=== PATIENT | female | born 2000 | race Caucasian/White ===

== ENCOUNTER 2024-12-08 10:45 | Day surgery (SDC) | payer OTHER ==
[2024-12-05 13:08] VITALS: BMI 19.5
[2024-12-08] MEDS ORDERED: PROMETHAZINE HCL 25 MG/1 ML VIAL IVPB PRN (12:55)
[2024-12-08] MEDS ORDERED: LACTATED RINGERS SOLUTION 1,000 ML IV SCH (13:00)
[2024-12-08] MEDS ORDERED: GUM MASTIC/STORAX/MSAL/ALCOHOL 1 DRP DROPSBTL MC ONE (13:08)
[2024-12-08] MEDS ORDERED: BUPIVACAINE HCL/EPINEPHRINE/PF 30 ML VIAL IJ ONE (13:08)
[2024-12-08] MEDS ORDERED: BACITRACIN ZINC 15 GM TUBE TOPICAL OINTMENT ONE (13:08)
[2024-12-08] MEDS ORDERED: PROPOFOL 80 ML ONE (13:12)
[2024-12-08] MEDS ORDERED: COCAINE HCL 4% TOPICAL SOLUTION 4 ML BOTTLE TP ONE (13:14)
[2024-12-08] MEDS ORDERED: ONDANSETRON 4 MG/2 ML VIAL ONE (13:16)
[2024-12-08] MEDS ORDERED: ACETAMINOPHEN INJECTION 100 ML ONE (13:16)
[2024-12-08] MEDS ORDERED: GLYCOPYRROLATE 0.2 MG/1 ML VIAL ONE (13:16)
[2024-12-08] MEDS ORDERED: LIDOCAINE HCL/PF 2% SDV 5ML VIAL ONE (13:16)
[2024-12-08] MEDS ORDERED: DEXAMETHASONE SOD PHOSPHATE 4 MG/1 ML VIAL ONE (13:16)
[2024-12-08] MEDS ORDERED: METOCLOPRAMIDE HCL INJECTION 10 MG/2 ML VIAL ONE (13:16)
[2024-12-08] MEDS ORDERED: MIDAZOLAM HCL 2 MG/2 ML SINGLE DOSE VIAL ONE ×2 (13:18→13:28)
[2024-12-08] MEDS ORDERED: ROCURONIUM BROMIDE 50 MG/5 ML SYRINGE ONE (13:19)
[2024-12-08] MEDS: BUPIVACAINE HCL/EPINEPHRINE/PF 30 ML VIAL IJ ONE (13:49)
[2024-12-08 16:50] VITALS: RESP 16; TEMP 98
[2024-12-08 17:39] VITALS: BP 118/85; PULSE 89
== END 2024-12-08 17:41 | disposition home or self-care (01) ==
LOC: FASU 10:45
PROVIDERS: ATTEND Plastic Surgery
PROC: 09RM07Z Replacement of Nasal Septum with Autologous Tissue Substitute, Open Approach (ICD-10-PCS; principal; 2024-12-08 14:02)
DX: J34.829 Nasal valve collapse, unspecified (principal); J34.2 Deviated nasal septum; J34.89 Other specified disorders of nose and nasal sinuses
CPT/HCPCS: 81025; 94760